=== PATIENT | female | born 1990 | race Two or more races ===

== ENCOUNTER 2022-08-14 02:58 | Outpatient (CLI) | payer OTHER ==
[2022-08-14] MEDS ORDERED: PRENATABS RX T1 EACH PO (03:15)
== END 2022-08-14 10:31 | disposition home or self-care (01) ==
LOC: OBS/DEL 02:58
PROVIDERS: ATTEND Specialist
DX: O36.8130 Decreased fetal movements, third trimester, not applicable or unspecified (principal); Z3A.33 33 weeks gestation of pregnancy

== ENCOUNTER 2022-09-23 05:50 | Inpatient (IN) | payer OTHER ==
[~2022-09-23] VITALS: Ht 162.6 cm; Wt 68.0 kg
[~2022-09-23 05:50] MED LIST: PRENATABS RX T1 EACH PO
== END 2022-09-25 17:08 | disposition home or self-care (01) | DRG 807 ==
LOC: LDR 05:50 → OB/GYN 08:46 → LDR 09:05 → OB/GYN 15:58
PROVIDERS: ADMIT Specialist; ATTEND Specialist
PROC: 10E0XZZ Delivery of Products of Conception, External Approach (ICD-10-PCS; principal; 2022-09-23)
PROC: 0W8NXZZ Division of Female Perineum, External Approach (ICD-10-PCS; 2022-09-23)
PROC: 4A1HXCZ Monitoring of Products of Conception, Cardiac Rate, External Approach (ICD-10-PCS; 2022-09-23)
DX: O80 Encounter for full-term uncomplicated delivery (principal); Z37.0 Single live birth; Z3A.39 39 weeks gestation of pregnancy; Z20.822 Contact with and (suspected) exposure to COVID-19